=== PATIENT | male | born 1995 | race Caucasian/White ===

== ENCOUNTER 2019-01-16 19:40 | Inpatient (IN) | payer BC ==
[~2019-01-16] VITALS: Ht 180.3 cm; Wt 59.4 kg
[2019-01-16] MEDS ORDERED: GLUCAGON,HUMAN RECOMBINANT 1 MG/ML VIAL. IV ONE (20:15)
[2019-01-16] MEDS ORDERED: IV NORMAL SALINE 1000ML BAG 1,000 ML IV ONE (20:15)
[2019-01-16] MEDS ORDERED: ONDANSETRON PF 4 MG/2 ML VIAL. IV ONE (20:15)
--- NOTE | 2019-01-16 20:53 | PHYS DOC ---
Past Medical History Additional Past Medical Histor: ASPERGERS Past Surgical History: No Surgical History Alcohol Use: None Drug Use: None Adult General Chief Complaint Chief Complaint: FOREIGN BODY HPI HPI Patient is a 23 year old m with steak impaction was eating 30 minutes ago got stuck points near thyroid cartilage. spitting up saliva moderate pressure in the area no abdo pain Review of Systems Review of Systems Constitutional: Denies fever or chills [] Eyes: Denies change in visual acuity, redness, or eye pain [] HENT: Denies nasal congestion or sore throat [] Respiratory: Denies cough or shortness of breath [] Musculoskeletal: Denies back pain or joint pain [] Integument: Denies rash or skin lesions [] Neurologic: Denies headache, focal weakness or sensory changes [] All other systems were reviewed and found to be within normal limits, except as documented in this note. Current Medications Current Medications Current Medications Medications (Trade) Dose Ordered Sig/Raymond Start Time Stop Time Status Last Admin Dose Admin Glucagon (Glucagen) 1 mg 1X ONCE 01/16/19 20:15 01/16/19 20:16 DC 01/16/19 20:23 1 MG Lorazepam (Ativan Inj) 1 mg 1X ONCE 01/16/19 20:15 01/16/19 20:16 DC 01/16/19 20:26 1 MG Ondansetron HCl (Zofran) 4 mg 1X ONCE 01/16/19 20:15 01/16/19 20:16 DC 01/16/19 20:24 4 MG Propofol 40 ml @ As Directed STK-MED ONCE 01/16/19 21:31 01/16/19 21:32 DC Sodium Chloride 1,000 ml @ 1,000 mls/hr 1X ONCE 01/16/19 20:15 01/16/19 21:14 DC 01/16/19 20:23 1,000 MLS/HR Allergies Allergies Allergies Coded Allergies Type Severity Reaction Last Updated Verified No Known Drug Allergies 01/16/19 No Physical Exam Physical Exam Constitutional: Well developed, mild distress spitting up saliva in the bin HENT: Normocephalic, atraumatic, bilateral external ears normal, oropharynx moist, no oral exudates, nose normal. [] Eyes: PERRLA, EOMI, conjunctiva normal, no discharge. [] Neck: Normal range of motion, no tenderness, supple, no stridor. [] Pulmonary: Normal respiratory effort no increased work of breathing no obvious chest wall trauma Abdomen: Bowel sounds normal, soft, no tenderness, no masses, no pulsatile masses. [] Skin: Warm, dry, no erythema, no rash. [] Back: No tenderness, no CVA tenderness. [] Extremities: No tenderness, no cyanosis, no clubbing, ROM intact, no edema. [] Neurologic: Alert and oriented X 3, normal motor function, normal sensory function, no focal deficits noted. [] Psychologic: Affect normal, judgement normal, mood normal. [] Current Patient Data Vital Signs Vital Signs Date Time Temp Pulse Resp B/P (MAP) Pulse Ox O2 Delivery O2 Flow Rate FiO2 01/16/19 21:39 98.9 83 16 98 98.9 01/16/19 20:56 131/81 (98) Room Air EKG EKG [] Radiology/Procedures Radiology/Procedures [] Course & Med Decision Making Course & Med Decision Making Pertinent Labs and Imaging studies reviewed. (See chart for details) []We try glucagon and Ativan and Zofran it did not work she was still spitting up saliva so I called Dr. Hernandez and spoke with him at 8:40 PM asked to have team and anesthesai called in he will be in about 45 minutes. PT TRANSFERRED OVER TO GI LAB Chelsey Disclaimer Chelsey Disclaimer This electronic medical record was generated, in whole or in part, using a voice recognition dictation system. Departure Departure Impression: Primary Impression: Food impaction of esophagus Disposition: HOME, SELF-CARE Condition: STABLE Referrals: NO PCP (PCP) CHASE GUEVARA MD Jan 16, 2019 20:53
[2019-01-16] MEDS ORDERED: PROPOFOL 40 ML IV ONE (21:31)
[2019-01-16] MEDS ORDERED: PROPOFOL 20 ML IV ONE (21:58)
[2019-01-16] MEDS ORDERED: MORPHINE SULFATE 2 MG/ML VIAL. IV PRN (22:00)
[2019-01-16] MEDS ORDERED: PIP/TAZO PER PHARMACY MC PRN (22:00)
--- NOTE | 2019-01-16 22:06 | PDOC2 ---
GI CONSULT Reason For Consult: Food impaction/esophageal tear HPI: HPI: 23 y'o male with food impaction earlier this evening. Came to ER with mother. Patient has Asberger's and not good historian. From mother, no prior history of dysphagia or other GI issues. During course of EGD, meat bolus encountered in mid-esophagus; with steady pressure, pushed into stomach. After this, a tear was noted in the mid esophagus suggestive of possible perforation. PMH: PMH: Asberger's, otherwise negative. FH: Family History: No pertinent hx Social History: Smoke: No ALCOHOL: none ROS: GEN: Denies fevers, chills, sweats HEENT: Denies blurred vision, sore throat CV: Denies chest pain RESP: Denies shortness of air, cough GI: Per HPI : Denies hematuria, dysuria ENDO: Denies weight changes NEURO: Denies confusion, dizziness MSK: Denies weakness, joint pain/swelling SKIN: Denies jaundice, pruritus Vitals: Vitals: Vital Signs Date Time Temp Pulse Resp B/P (MAP) Pulse Ox O2 Delivery O2 Flow Rate FiO2 01/16/19 21:39 98.9 83 16 98 98.9 01/16/19 20:56 131/81 (98) Room Air Allergies: Coded Allergies: No Known Drug Allergies (Unverified , 01/16/19) Medications: Current Medications Medications (Trade) Dose Ordered Sig/Raymond Route PRN Reason Start Time Stop Time Status Last Admin Dose Admin Glucagon (Glucagen) 1 mg 1X ONCE IV 01/16/19 20:15 01/16/19 20:16 DC 01/16/19 20:23 Lorazepam (Ativan Inj) 1 mg 1X ONCE IV 01/16/19 20:15 01/16/19 20:16 DC 01/16/19 20:26 Ondansetron HCl (Zofran) 4 mg 1X ONCE IV 01/16/19 20:15 01/16/19 20:16 DC 01/16/19 20:24 Sodium Chloride 1,000 ml @ 1,000 mls/hr 1X ONCE IV 01/16/19 20:15 01/16/19 21:14 DC 01/16/19 20:23 Imaging: Imaging: CT chest pending. PE: GEN: NAD HEENT: Atraumatic, PERRLA LUNGS: CTAB HEART: RRR, no murmurs ABD: NABS, S/ND/NT, no masses EXTREMITY: No edema SKIN: No rashes, no jaundice NEURO/PSYCH: A & O �3 A/P: A/P: IMP: Impacted meat/gristle, resolved. Esophageal tear after intervention. REC: Admit NPO/IVF's Empiric antibiotics geared toward mouth narayan. Stat CT chest w/o constrast re: "Air" CTS opinion if air. Not emergent. SHAUN KLEIN MD Jan 16, 2019 22:06
--- NOTE | 2019-01-16 22:10 | PDOC4 ---
PROCEDURE Procedure EGD/food impaction. Indication: impacted food bolus. Meds: per anesthesia Findings: E--Impacted meat/gristle mid-esophagus. With steady pressure, pushed into stomach. On inspection after, tear in mid-esophagus, anterior wall. Concern for perforation. Further exam abandoned. IMP: Impacted food bolus, resolved. Esophageal tear, possible perforation. REC: Admit. NPO CT chest w/o contrast. Empiric antibiotics aimed at mouth narayan. CTS opinion if air on CT; emergent intervention not generally needed. Observation first. SHAUN KLEIN MD Jan 16, 2019 22:10
[2019-01-16] MEDS ORDERED: PIPERACILLIN/TAZOBACTAM 3.375 GM in IV NORMAL SALINE 50ML 50 ML IV ONE (22:30)
[2019-01-16 23:09] LABS: BASO # 0.1 x10^3/uL (0.0-0.2); BASO % 1 % (0-3); EOS # 0.1 x10^3/uL (0.0-0.7); EOS % 1 % (0-3); HEMATOCRIT 40.8 % (39.0-53.0); LYMPH # 1.9 x10^3/uL (1.0-4.8); LYMPH % 12 % (24-48); MEAN CORPUSCULAR HEMOGLOBIN 30 pg (25-35); MEAN CORPUSCULAR HGB CONC 34 g/dL (31-37); MEAN CORPUSCULAR VOLUME 87 fL (79-100); MONO # 0.6 x10^3/uL (0.0-1.1); MONO % 4 % (0-9); NEUT # 13.6 x10^3/uL (1.8-7.7); NEUT % 83 % (31-73); PLATELET COUNT 209 x10^3/uL (140-400); RED BLOOD COUNT 4.72 x10^6/uL (4.30-5.70); RED CELL DISTRIBUTION WIDTH 12.7 % (11.5-14.5); WHITE BLOOD COUNT 16.2 x10^3/uL (4.0-11.0)
[2019-01-16 23:23] LABS: PROTHROMBIN TIME PATIENT 13.6 SEC (11.7-14.0)
[2019-01-16 23:31] LABS: CALCIUM 7.8 mg/dL (8.5-10.1); CREATININE 0.7 mg/dL (0.7-1.3); GFR 139.8; POTASSIUM 3.8 mmol/L (3.5-5.1)
[2019-01-16 23:37] LABS: ALBUMIN 3.4 g/dL (3.4-5.0); TOTAL BILIRUBIN 0.3 mg/dL (0.2-1.0); TOTAL PROTEIN 6.7 g/dL (6.4-8.2)
--- NOTE | 2019-01-16 23:39 | RAD ---
INDICATION: Esophageal tear COMPARISON: None. TECHNIQUE: Axial CT images obtained through the chest without contrast. One or more of the following individualized dose reduction techniques were utilized for this examination: 1. Automated exposure control; 2. Adjustment of the mA and/or kV according to patient size; 3. Use of iterative reconstruction technique. FINDINGS: No evidence of pneumothorax. No focal airspace consolidation to suggest pneumonia. Soft tissue anterior mediastinum. Given patient's age could be residual thymus. The thoracic aorta is not dilated. There is air along the wall of the esophagus. Esophagus is mildly distended. IMPRESSION: 1. Air along the wall of the esophagus which could be from the patient's reported esophageal tear. There is no evidence of pneumothorax or definite pneumomediastinum extending elsewhere in the mediastinum. Electronically signed by: Tyrel Nicholas MD (01/16/2019 11:36 PM) [facility]
[2019-01-17] VITALS (8 sets, daily range): BP systolic 94–124; BP diastolic 46–67
[2019-01-17] MEDS ORDERED: ONDANSETRON PF 4 MG/2 ML VIAL. IV ONE (00:15)
[2019-01-17] MEDS: IV NORMAL SALINE 1000ML BAG 1,000 ML IV SCH ×3 (00:47→14:00)
[2019-01-17 01:34] LABS: % BANDS 5 % (0-9); % EOS 2 % (0-5); % LYMPHS 7 % (24-48); % MONOS 1 % (0-10); % SEGS 85 % (35-66); PLT ESTIMATE ADEQUATE (ADEQUATE)
--- NOTE | 2019-01-17 02:00 | NUR ---
PATIENT IS ADMITTED TO ICU ROOM 106 FROM THE ED. UPON ARRIVAL PATIENT IS ALERT AND ANSWERS QUESTIONS APPROPRIATELY. 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 MOTHER AT BEDSIDE. DR. JOSEPH NOTIFIED OF ADMIT AND CHANGED STATUS TO MMOF. WILL CONTINUE TO MONITOR.
[2019-01-17] MEDS ORDERED: LISD70CA5 PO (07:36)
[2019-01-17] MEDS ORDERED: GUAN4TAB12 PO (07:36)
--- NOTE | 2019-01-17 11:06 | PDOC ---
Subjective: Subjective: Parents present - mother with many repeated questions... Why can't he eat/drink, why can't he go home, why can't he take his regular pills, the hospital is full of germs so why can't he go home, did some online research about esophageal tears and thinks he should be able to drink, wonders when he'll have more imaging. Additional concern re: insurance coverage here and possible need to transfer to if he's not discharged. Pt feels okay. Objective: Objective: D/w Dr. Brown - wondering about eating/drinking. D/w nurse - family asks the same questions over and over. Social work involved re: their questions about insurance/need for transfer to . To transfer out of ICU to [facility] overflow. Vital Signs: Vital Signs Date Time Temp Pulse Resp B/P (MAP) Pulse Ox O2 Delivery O2 Flow Rate FiO2 01/17/19 08:00 98.3 84 17 118/62 (80) 98 Room Air 98.3 01/16/19 21:52 2 Labs: Laboratory Tests Test 01/16/19 22:50 White Blood Count 16.2 x10^3/uL Red Blood Count 4.72 x10^6/uL Hemoglobin 14.0 g/dL Hematocrit 40.8 % Mean Corpuscular Volume 87 fL Mean Corpuscular Hemoglobin 30 pg Mean Corpuscular Hemoglobin Concent 34 g/dL Red Cell Distribution Width 12.7 % Platelet Count 209 x10^3/uL Neutrophils (%) (Auto) 83 % Lymphocytes (%) (Auto) 12 % Monocytes (%) (Auto) 4 % Eosinophils (%) (Auto) 1 % Basophils (%) (Auto) 1 % Neutrophils # (Auto) 13.6 x10^3/uL Lymphocytes # (Auto) 1.9 x10^3/uL Monocytes # (Auto) 0.6 x10^3/uL Eosinophils # (Auto) 0.1 x10^3/uL Basophils # (Auto) 0.1 x10^3/uL Segmented Neutrophils % 85 % Band Neutrophils % 5 % Lymphocytes % 7 % Monocytes % 1 % Eosinophils % 2 % Platelet Estimate Adequate Prothrombin Time 13.6 SEC Prothromb Time International Ratio 1.1 Sodium Level 145 mmol/L Potassium Level 3.8 mmol/L Chloride Level 107 mmol/L Carbon Dioxide Level 30 mmol/L Anion Gap 8 Blood Urea Nitrogen 9 mg/dL Creatinine 0.7 mg/dL Estimated GFR (Cockcroft-Gault) 139.8 BUN/Creatinine Ratio 13 Glucose Level 94 mg/dL Calcium Level 7.8 mg/dL Total Bilirubin 0.3 mg/dL Aspartate Amino Transf (AST/SGOT) 24 U/L Alanine Aminotransferase (ALT/SGPT) 27 U/L Alkaline Phosphatase 88 U/L Total Protein 6.7 g/dL Albumin 3.4 g/dL Albumin/Globulin Ratio 1.0 Imaging: EGD 01/16/19 E--Impacted meat/gristle mid-esophagus. With steady pressure, pushed into stomach. On inspection after, tear in mid-esophagus, anterior wall. Concern for perforation. Further exam abandoned. IMP: Impacted food bolus, resolved. Esophageal tear, possible perforation. Chest CT 01/16/19 IMPRESSION: Air along the wall of the esophagus which could be from the patient's reported esophageal tear. There is no evidence of pneumothorax or definite pneumomediastinum extending elsewhere in the mediastinum. PE: GEN: NAD LUNGS: CTAB, room air HEART: RRR ABD: NABS, S/ND/NT NEURO/PSYCH: A & O �3, flat but pleasant and cooperative A/P: Food impaction, esophageal tear -- Significant time spent, attempted to answer all questions - pt seems agreeable to plan, unclear family understands - seems a lot of concern re: insurance. Confirmed w/ Dr. Hernandez - remain NPO, continue support. Defer questions about Vyvanse to Dr. Brown. Defer questions about insurance to social work. LONNY WIN Jan 17, 2019 11:06
--- NOTE | 2019-01-17 11:13 | HP ---
ADMIT DATE: 01/16/2019 CHIEF COMPLAINT: Possible esophageal perforation after EGD with food impaction. HISTORY OF PRESENT ILLNESS: The patient is a pleasant 23-year-old healthy male, who basically ate a piece of steak; it got stuck in his throat. He came to the ER. He went for an EGD. They were able to pass the food through, but the patient then developed signs of possible esophageal perf. He has now been admitted to the ICU this morning where he has been seen and examined in room 106 where he is doing quite well and his family is present, including his mom and dad. PAST MEDICAL HISTORY: Asperger disease. ALLERGIES: None. FAMILY HISTORY: Coronary disease. SOCIAL HISTORY: He does not drink, smoke or take drugs. He is a student. MEDICATIONS: Reviewed, please refer to the MRAD. REVIEW OF SYSTEMS: GENERAL: No history of weight change, weakness or fevers. SKIN: No bruising, hair changes or rashes. EYES: No blurred, double or loss of vision. NOSE AND THROAT: No history of nosebleeds, hoarseness or sore throat. HEART: No history of palpitations, chest pain or shortness of breath on exertion. LUNGS: Denies cough, hemoptysis, wheezing or shortness of breath. GASTROINTESTINAL: Denies changes in appetite, nausea, vomiting, diarrhea or constipation. GENITOURINARY: No history of frequency, urgency, hesitancy or nocturia. NEUROLOGIC: Denies history of numbness, tingling, tremor or weakness. PSYCHIATRIC: No history of panic, anxiety or depression. ENDOCRINE: No history of heat or cold intolerance, polyuria or polydipsia. EXTREMITIES: Denies muscle weakness, joint pain, pain on walking or stiffness. PHYSICAL EXAMINATION: VITALS: Within normal limits and are stable. GENERAL: No apparent distress. Alert and oriented. HEENT: Head is normocephalic, atraumatic, pupils were equally round and reactive to light and accommodation. NECK: Supple, no JVD, no thyromegaly was noted. LUNGS: Clear to auscultation in all lung tsai without rhonchi or wheezing. HEART: RRR, S1, S2 present. Peripheral pulses intact, no obvious murmurs were noted. ABDOMEN: Soft, nontender. Positive bowel sounds no organomegaly, normal bowel sounds. EXTREMITIES: Without any cyanosis, clubbing, or edema. Pedal pulses intact, Homans sign is negative. NEUROLOGIC: Normal speech, normal tone. A & O x3, moves all extremities, no obvious focal deficits. PSYCHIATRIC: Normal affect, normal mood. Stable. SKIN: No ulcerations or rashes, good skin turgor, no jaundice. VASCULAR: Good capillary refill, neurovascular bundle appears to be intact. ASSESSMENT AND PLAN: Resolving food impaction with possible esophageal perforation. Clinically, the patient is doing quite well. Suspect we can try to advance his diet and let him go home either today or tomorrow, but I am going to let GI make the final call on that. I did call the nurse practitioner, Jena. She is going to come see the patient now and then Dr. Hernandez will see the patient this afternoon. For now, DVT prophylaxis, ICU monitoring, IV fluids, pain meds, and p.r.n. Zofran. ADRIA JOSEPH DO DR: HOLLIE/bob JOB#: [id number] / [id number]
[2019-01-17] MEDS: PIPERACILLIN/TAZOBACTAM 3.375 GM in IV NORMAL SALINE 50ML 50 ML IV SCH ×2 (12:00→17:53)
--- NOTE | 2019-01-17 16:31 | NUR ---
Difficulty w clear communication to family on times MDs will be in. Able to tell Dr. Gardiner' approx time but informed family that Jena BERGP would be in see patient prior to Dr Fuller' bedside check. Family concerned on insurance coverage and out of system co- pay. Informed them would communicate w SS on insurance coverage.Discussed concerns w Amanda and she enlisted assistance from Katie/ case operator. Family impatient wanting "immediate response". Perseverates on insurance and meds shortly after pertinent information provided. Jena MINDA in . Family wanting patient to be discharged. Detailed ,timely explanation on mostly "cons " of discharge. Please see associated note by her. Katie to unit w insurance information and names of people she communicated with( written out and provide to Joselyn-mother). Call to GI lab on probable time for Dr Fuller visit /informed family "after 1600. Mother able to obtain ,on her own pertinent information for Katie to ensure coverage.Asked if I could send it to her,stated wanting to talk specifically to her to ensure the information was 'correctly' explained. Talked to Andrea Jessica on patients needed meds and time frame of possible with drawl if missed. Information relayed to mother Joselyn. Hand off report to Steve GARNER
--- NOTE | 2019-01-17 17:39 | NUR ---
1200 med missed byu this nurse. Follow up med 1800 .
[2019-01-18] VITALS: BP 102/56
[2019-01-18] MEDS: PIPERACILLIN/TAZOBACTAM 3.375 GM in IV NORMAL SALINE 50ML 50 ML IV SCH ×3 (00:50→11:50)
[2019-01-18 04:00] VITALS: BP 92/59
[2019-01-18 07:52] LABS: CALCIUM 8.8 mg/dL (8.5-10.1); CREATININE 0.6 mg/dL (0.7-1.3); POTASSIUM 3.7 mmol/L (3.5-5.1)
[2019-01-18 08:00] VITALS: BP 102/49
[2019-01-18 08:10] LABS: BASO # 0.1 x10^3/uL (0.0-0.2); BASO % 1 % (0-3); EOS # 0.1 x10^3/uL (0.0-0.7); EOS % 1 % (0-3); HEMATOCRIT 42.6 % (39.0-53.0); HEMOGLOBIN 15.1 g/dL (13.0-17.5); LYMPH # 1.9 x10^3/uL (1.0-4.8); LYMPH % 22 % (24-48); MEAN CORPUSCULAR HEMOGLOBIN 30 pg (25-35); MEAN CORPUSCULAR HGB CONC 35 g/dL (31-37); MEAN CORPUSCULAR VOLUME 86 fL (79-100); MONO # 0.8 x10^3/uL (0.0-1.1); MONO % 10 % (0-9); NEUT # 5.7 x10^3/uL (1.8-7.7); NEUT % 67 % (31-73); PLATELET COUNT 189 x10^3/uL (140-400); RED BLOOD COUNT 4.95 x10^6/uL (4.30-5.70); RED CELL DISTRIBUTION WIDTH 12.8 % (11.5-14.5); WHITE BLOOD COUNT 8.5 x10^3/uL (4.0-11.0)
[2019-01-18] MEDS ORDERED: IOHEXOL 300 MG/ML 100ML VIAL. PO ONE (08:30)
[2019-01-18] MEDS ORDERED: CONTRAST GIVEN. MC PRN (08:45)
[2019-01-18] MEDS ORDERED: BARIUM SULFATE 60% 355 ML SUSP PO ONE (09:00)
[2019-01-18] MEDS ORDERED: IOHEXOL 300 MG/ML 100ML VIAL. ONE (09:09)
--- NOTE | 2019-01-18 11:06 | RAD ---
Examination: ESOPHAGRAM/BARIUM SWALLOW History: Food stuck in the esophagus. Pain after removal. Comparison/Correlation: None Findings: 1.2 minutes of fluoroscopy were utilized. Total of 13 images were acquired by fluoroscopy. Imaging was performed with Omnipaque 300 and thick liquid barium. Normal esophageal motility. No suspicious filling defect. No extravasation of contrast. Contrast flows freely into the stomach. Prone Valsalva drinking views were obtained. Very small sliding hiatal hernia is suspected. Impression: No suspicious filling defect involving the esophagus. No stricture. No extravasation to suggest tear. Very small sliding hiatal hernia is suspected. Electronically signed by: Uday Butts MD (01/18/2019 11:03 AM) [facility]
--- NOTE | 2019-01-18 11:35 | PDOC ---
Subjective: Subjective: Feeling fine. D/w nurse - family wanting to know when he can eat and leave. Objective: Vital Signs: Vital Signs Date Time Temp Pulse Resp B/P (MAP) Pulse Ox O2 Delivery O2 Flow Rate FiO2 01/18/19 08:00 97.7 80 16 102/49 (66) 100 Room Air 97.7 01/17/19 17:31 2.0 Labs: Laboratory Tests Test 01/18/19 04:05 White Blood Count 8.5 x10^3/uL Red Blood Count 4.95 x10^6/uL Hemoglobin 15.1 g/dL Hematocrit 42.6 % Mean Corpuscular Volume 86 fL Mean Corpuscular Hemoglobin 30 pg Mean Corpuscular Hemoglobin Concent 35 g/dL Red Cell Distribution Width 12.8 % Platelet Count 189 x10^3/uL Neutrophils (%) (Auto) 67 % Lymphocytes (%) (Auto) 22 % Monocytes (%) (Auto) 10 % Eosinophils (%) (Auto) 1 % Basophils (%) (Auto) 1 % Neutrophils # (Auto) 5.7 x10^3/uL Lymphocytes # (Auto) 1.9 x10^3/uL Monocytes # (Auto) 0.8 x10^3/uL Eosinophils # (Auto) 0.1 x10^3/uL Basophils # (Auto) 0.1 x10^3/uL Sodium Level 141 mmol/L Potassium Level 3.7 mmol/L Chloride Level 103 mmol/L Carbon Dioxide Level 23 mmol/L Anion Gap 15 Blood Urea Nitrogen 7 mg/dL Creatinine 0.6 mg/dL Estimated GFR (Cockcroft-Gault) 167.0 Glucose Level 70 mg/dL Calcium Level 8.8 mg/dL Imaging: Barium Swallow 01/18/19 Impression: No suspicious filling defect involving the esophagus. No stricture. No extravasation to suggest tear. Very small sliding hiatal hernia is suspected. PE: GEN: NAD LUNGS: CTAB HEART: RRR ABD: NABS, S/ND/NT NEURO/PSYCH: A & O �3 A/P: Food impaction, esophageal tear -- Will review w/ Dr. Hernandez - ?try liquids LONNY WIN Jan 18, 2019 11:35
[2019-01-18 12:00] VITALS: BP 108/52
--- NOTE | 2019-01-18 12:27 | PDOC ---
[employer] PROGRESS NOTE Chief Complaint Chief Complaint Food impaction Esophageal tear Hiatal hernia H/o of Asperger disease History of Present Illness History of Present Illness 01/18/19 Pt seen and examined in ICU Pt is walking around, appears well Chest CT indicates esophageal tear Esophagram/Barium swallow indicates hiatal hernia Vitals/I&O Vitals/I&O: Vital Signs Date Time Temp Pulse Resp B/P (MAP) Pulse Ox O2 Delivery O2 Flow Rate FiO2 01/18/19 12:00 97.9 76 16 108/52 (70) 98 Room Air 97.9 01/17/19 17:31 2.0 I & O 01/17/19 01/17/19 01/18/19 15:00 23:00 07:00 Intake Total 2025 ml 460 ml Balance 2025 ml 460 ml Labs Labs: Laboratory Tests Test 01/18/19 04:05 White Blood Count 8.5 x10^3/uL (4.0-11.0) Red Blood Count 4.95 x10^6/uL (4.30-5.70) Hemoglobin 15.1 g/dL (13.0-17.5) Hematocrit 42.6 % (39.0-53.0) Mean Corpuscular Volume 86 fL (79-100) Mean Corpuscular Hemoglobin 30 pg (25-35) Mean Corpuscular Hemoglobin Concent 35 g/dL (31-37) Red Cell Distribution Width 12.8 % (11.5-14.5) Platelet Count 189 x10^3/uL (140-400) Neutrophils (%) (Auto) 67 % (31-73) Lymphocytes (%) (Auto) 22 % (24-48) Monocytes (%) (Auto) 10 % (0-9) Eosinophils (%) (Auto) 1 % (0-3) Basophils (%) (Auto) 1 % (0-3) Neutrophils # (Auto) 5.7 x10^3/uL (1.8-7.7) Lymphocytes # (Auto) 1.9 x10^3/uL (1.0-4.8) Monocytes # (Auto) 0.8 x10^3/uL (0.0-1.1) Eosinophils # (Auto) 0.1 x10^3/uL (0.0-0.7) Basophils # (Auto) 0.1 x10^3/uL (0.0-0.2) Sodium Level 141 mmol/L (136-145) Potassium Level 3.7 mmol/L (3.5-5.1) Chloride Level 103 mmol/L (98-107) Carbon Dioxide Level 23 mmol/L (21-32) Anion Gap 15 (6-14) Blood Urea Nitrogen 7 mg/dL (8-26) Creatinine 0.6 mg/dL (0.7-1.3) Estimated GFR (Cockcroft-Gault) 167.0 Glucose Level 70 mg/dL (70-99) Calcium Level 8.8 mg/dL (8.5-10.1) Review of Systems Review of Systems: Denies SAMUEL Denies N/V/D Assessment and Plan Assessmemt and Plan Problems Medical Problems: (1) Food impaction of esophagus Status: Acute Assessment Food impaction Esophageal tear Hiatal hernia H/o of Asperger disease Plan Discharge if okay with GI Comment Review of Relevant I have reviewed the following items dulce (where applicable) has been applied. Medications: Current Medications Medications (Trade) Dose Ordered Sig/Raymond Route PRN Reason Start Time Stop Time Status Last Admin Dose Admin Iohexol (Omnipaque 300 Mg/ml) 200 ml 1X ONCE PO 01/18/19 08:30 01/18/19 08:31 DC 01/18/19 09:03 Barium Sulfate (Liquid E-Z Paque) 355 ml 1X ONCE PO 01/18/19 09:00 01/18/19 09:01 DC 01/18/19 09:03 ADRIA JOSEPH III DO Jan 18, 2019 12:27
--- NOTE | 2019-01-18 13:10 | NUR ---
Discharge Note: [facility] Discharge instructions and discharge home medications reviewed with Patient and a copy given. All questions have been answered and understanding verbalized. The following instructions and handouts were given: Full Liquid diet Discontinued lines and drains: dressing clean dry and intact. Patient discharged to home with self care via family
--- NOTE | 2019-01-18 23:23 | DS ---
DATE OF DISCHARGE: 01/18/2019 ADMISSION DIAGNOSIS: Esophageal tear after recent food impaction with esophagogastroduodenoscopy. DISCHARGE DIAGNOSES: Resolving food impaction and resolving esophageal tear. HOSPITAL COURSE: The patient is a pleasant 23-year-old healthy male who has Asperger's. Basically, he swallowed a very large piece of steak with a huge piece of gristle on it. It was stuck in his esophagus. Dr. Hernandez took him for an EGD. I spoke with Dr. Hernandez this morning. He states that the food bolus was quite impressive. There was nothing to grab onto. The only thing he could do is to go ahead and push on through. When he pushed it through, it made a small tear in his esophagus. We went ahead and admitted the patient, watched him overnight in the ICU for a couple of days. This morning, the patient was up talking, requesting food. Imaging studies are improving and clinically he looks great. Her heart tones were normal. Lungs were clear. We planned to discharge. Dr. Hernandez would like him to be on a clear liquid diet for a week. He states he could have some pudding if necessary. DISPOSITION: Home. ACTIVITY: As tolerated. DIET: Low sodium. MEDICATIONS: Please see the MRAD. TOTAL TIME: 34 minutes. ADRIA JOSEPH DO DR: HOLLIE/bob JOB#: [id number] / [id number]
== END 2019-01-18 13:00 | disposition home or self-care (01) | DRG 155 ==
LOC: ER 19:40 → 1 WEST ICU 22:00
PROVIDERS: ADMIT Internal Medicine; ATTEND Internal Medicine
PROC: 0DJ08ZZ Inspection of Upper Intestinal Tract, Via Natural or Artificial Opening Endoscopic (ICD-10-PCS; principal; 2019-01-16 21:35)
DX: S11.22XA Laceration with foreign body of pharynx and cervical esophagus, initial encounter (principal); F84.5 Asperger's syndrome; X58.XXXA Exposure to other specified factors, initial encounter; Z79.899 Other long term (current) drug therapy; Y93.89 Activity, other specified; Y92.89 Other specified places as the place of occurrence of the external cause; Y99.8 Other external cause status; K44.9 Diaphragmatic hernia without obstruction or gangrene; Y92.009 Unspecified place in unspecified non-institutional (private) residence as the place of occurrence of the external cause
CPT/HCPCS: 36415; 43247; 71250; 74220; 80048; 80053; 85007; 85025; 85610; 87641; J1610; J2060; J2270; J2405; J2543; J2704; J7030; Q9967; G0378